=== PATIENT | female | born 1955 | race Caucasian/White ===

== ENCOUNTER 2020-08-21 16:53 | Emergency (ER) | payer OTHER ==
[~2020-08-21] VITALS: Ht 154.9 cm; Wt 63.5 kg
[2020-08-21 16:58] VITALS: Ht 154.9 cm; Wt 63.5 kg
[2020-08-21 19:35] VITALS: BP 141/81
== END 2020-08-21 19:49 | disposition home or self-care (01) ==
LOC: ED 16:53
DX: T78.1XXA Other adverse food reactions, not elsewhere classified, initial encounter (principal); I10 Essential (primary) hypertension; E03.9 Hypothyroidism, unspecified; X58.XXXA Exposure to other specified factors, initial encounter
CPT/HCPCS: J1200; J2930